=== PATIENT | female | born 1990 | race Caucasian/White ===

== ENCOUNTER 2017-02-16 22:06 | Emergency (ER) | payer OTHER ==
[~2017-02-16] VITALS: Ht 147.3 cm; Wt 68.1 kg
[2017-02-16 22:25] VITALS: Ht 147.3 cm; Wt 68.1 kg
--- NOTE | 2017-02-17 01:37 | RADRPT ---
PROCEDURE: Portable chest x-ray. CLINICAL INDICATION: Chest pain, shortness of breath. TECHNIQUE: Portable AP view of the chest. COMPARISON: None. FINDINGS: No pulmonary edema or conolidation is identified. The cardiac silhouette is magnified. No pleural effusion is seen. There is no pneumothorax. IMPRESSION: 1. No evidence of acute cardiopulmonary disease. RPTAT: HTAR .Anatoly Vallecillo MD, MD Date Time Electronically viewed and signed by .Anatoly Vallecillo MD, on 02/17/2017 01:37 .R/
--- NOTE | 2017-02-17 02:16 | RADRPT ---
PROCEDURE: Soft tissue neck. CLINICAL INDICATION: Swelling. TECHNIQUE: Two views including AP and lateral views of the soft tissue neck were obtained. COMPARISON: None. FINDINGS: The airways are patent. The epiglottis is not enlarged. Prevertebral soft tissues are within buzz l limits. There is no radiopaque foreign body or abnormal calcification identified. Osseous struct ures are unremarkable. IMPRESSION: Unremarkable soft tissue neck. .Sorin Hawk MD, MD Date Time Electronically viewed and signed by .Sorin Hawk MD, on 02/17/2017 02:15 .T/
[2017-02-17] MEDS ORDERED: IBUP-1542 PO (02:22)
[2017-02-17 02:29] VITALS: BP 121/75; PULSE 77; RESP 20; TEMP 97.9
--- NOTE | 2017-02-17 02:44 | ERD ---
ER Documentation Chief Complaint Chief Complaint cough x2 weeks, +cp and sob. HPI This is a 26-year-old female presents to the ER with multiple complaints. Patient has had a cough over the last 2 weeks, however cough is now resolving. She states that she began to experience chest pain and shortness of breath. Chest is nonexertional and is intermittent. Patient states that she also feels as if she has something stuck in the back of her throat and is also complaining of sore throat. Patient denies any trauma. She denies any recent travel. She does not have any leg pain, redness or swelling. She has not had any recent surgeries. She denies drinking and smoking. ROS 12 point review of systems was done, all negative except per HPI. Medications Home Meds Active Scripts Ibuprofen* (Motrin*) 600 Mg Tab, 600 MG PO Q6, #30 TAB Prov:ALFONSO THOMAS 02/17/17 PMhx/Soc Medical and Surgical Hx: pt denies Medical Hx History of Surgery: Yes (left arm sx) Anesthesia Reaction: No Hx Alcohol Use: No Hx Substance Use: No Hx Tobacco Use: No Smoking Status: Never smoker Physical Exam Vitals Vital Signs Date Time Temp Pulse Resp B/P Pulse Ox O2 Delivery O2 Flow Rate FiO2 02/17/17 02:29 97.9 77 20 121/75 97 Room Air 02/16/17 22:25 98.0 65 20 137/86 98 Physical Exam GENERAL: The patient is well developed and appropriate for usual state of health , in no apparent distress. HEENT: Atraumatic. Conjunctivae are pink. Pupils equal, round, and reactive to light. Extraocular muscles are grossly intact. Bilateral tympanic membranes are clear with no evidence of erythema, effusion or dulling of the light reflex. The oropharynx is clear with no erythema or exudates. NECK: C-spine is soft and supple. There is no cervical lymphadenopathy. CHEST: Clear to auscultation bilaterally. There are no rales, wheezes or rhonchi. HEART: Regular rate and rhythm. No murmurs, clicks, rubs or gallops. ABDOMEN: Soft, nontender and nondistended. Good bowel sounds. No rebound or guarding. No gross peritonitis. No gross organomegaly or masses. No Alvarez sign or McBurney point tenderness. No pulsatile masses. BACK: No midline or flank tenderness. EXTREMITIES: Equal pulses bilaterally. There is no peripheral clubbing, cyanosis or edema. No focal swelling or erythema. Full range of motion. Grossly neurovascularly intact. NEURO: Alert and oriented. Cranial nerves II through XII are intact. Motor strength in all 4 extremities with 5/5 strength. Sensation grossly intact. Normal speech and gait. SKIN: There is no apparent rash or petechia. The skin is warm and dry. Procedures/MDM EKG was taken and read by Dr. Harden [address] elevation no T-wave inversion. Differential diagnosis includes but is not limited to; STEMI, dissection, pneumothorax, PE, esophageal rupture, tamponade, pneumonia, pericarditis, GERD, musculoskeletal, endocarditis, anxiety. This time etiology of chest pain known however suspicion for acute cardiac etiology is low. For pulmonary embolism is low, patient does not have any PERC criteria. No evidence of foreign body in throat, and her examination was negative for strep throat. She for pneumonia is low, patient x-ray was negative and her physical examination is benign. Patient is afebrile, not hypoxic and extremely well-appearing, patient will be sent home with ibuprofen for pain. She is to follow-up with her primary care doctor within 1-2 days return to ER sooner if symptoms worsen. My medical decision making shared with the patient she understands and agrees with plan. Departure Diagnosis: Primary Impression: Multiple complaints Condition: Stable Patient Instructions: Chest Pain, Noncardiac Additional Instructions: Call your primary care doctor TOMORROW for an appointment during the next 1-2 days.See the doctor sooner or return here if your condition worsens before your appointment time. ALFONSO THOMAS Feb 17, 2017 02:44
== END 2017-02-17 02:30 | disposition home or self-care (01) ==
LOC: FTE 22:06
DX: R05 Cough (principal); R06.02 Shortness of breath; R07.9 Chest pain, unspecified; J02.9 Acute pharyngitis, unspecified
CPT/HCPCS: 70360; 71010; 93005; Z7502

== ENCOUNTER 2017-04-10 06:48 | Emergency (ER) | payer OTHER ==
[~2017-04-10] VITALS: Ht 149.9 cm; Wt 65.5 kg
[~2017-04-10 06:48] MED LIST: IBUP-1542 PO
[2017-04-10 06:55] VITALS: Ht 149.9 cm; Wt 65.5 kg
[2017-04-10] MEDS ORDERED: KETOROLAC 30 MG INJ IV STA (07:16)
[2017-04-10] MEDS ORDERED: ONDANSETRON (ODT) 4 MG TAB ODT STA (07:16)
[2017-04-10] MEDS ORDERED: ACETAMINOPHEN 325 MG TAB PO ONE (07:30)
[2017-04-10 08:06] LABS: BASOPHILS % 0.2 % (0.0-2.0); HEMATOCRIT 35.1 % (37.0-47.0); HEMOGLOBIN 12.2 g/dl (12.0-16.0); LYMPHOCYTES # 0.8 10^3/ul (0.8-2.9); LYMPHOCYTES % 10.2 % (15.0-51.0); MEAN CORPUSCULAR HEMOGLOBIN 28.8 pg (29.0-33.0); MEAN CORPUSCULAR HGB CONC 34.8 g/dl (32.0-37.0); MEAN PLATELET VOLUME 10.8 fl (7.4-10.4); MONOCYTE # 0.5 10^3/ul (0.3-0.9); MONOCYTES % 5.8 % (0.0-11.0); NEUTROPHIL # 6.8 10^3/ul (1.6-7.5); NEUTROPHILS % 83.6 % (39.0-77.0); PLATELET COUNT 192 10^3/UL (140-415); RED BLOOD COUNT 4.23 10^6/ul (4.20-5.40); RED CELL DISTRIBUTION WIDTH 12.9 % (11.5-14.5); WHITE BLOOD COUNT 8.1 10^3/ul (4.8-10.8)
[2017-04-10 08:19] LABS: ADD UMIC YES; UR ASCORBIC ACID NEGATIVE (NEGATIVE); UR BACTERIA FEW /HPF (NONE SEEN); UR BILIRUBIN (Dip) NEGATIVE (NEGATIVE); UR BLOOD (Dip) 1+ mg/dL (NEGATIVE); UR CLARITY CLEAR (CLEAR); UR COLOR COLORLESS (YELLOW); UR GLUCOSE (Dip) NEGATIVE (NEGATIVE); UR KETONES (Dip) NEGATIVE (NEGATIVE); UR LEUKOCYTE ESTERASE (Dip) NEGATIVE Leu/ul (NEGATIVE); UR NITRITE (Dip) NEGATIVE (NEGATIVE); UR RBC 6 /HPF (0-5); UR SPECIFIC GRAVITY (Dip) 1.001 (1.003-1.030); UR TOTAL PROTEIN (Dip) NEGATIVE (NEGATIVE); UR UROBILINOGEN (Dip) NEGATIVE (NEGATIVE)
--- NOTE | 2017-04-10 08:20 | RADRPT ---
PROCEDURE: XR Chest. CLINICAL INDICATION: Cough, nausea, sore throat. TECHNIQUE: AP Portable chest. COMPARISON: CHEST 02/17/2017 FINDINGS: The lung volumes are somewhat diminished. The cardiomediastinal silhouette appears within normal charles its. The lungs are clear and costophrenic angles sharp. The osseous structures are unremarkable. IMPRESSION: Low lung volumes, though no radiographic evidence of acute cardiopulmonary disease. RPTAT: HJAH .Hemalatha Casiano MD, MD Date Time Electronically viewed and signed by .Hemalatha Casiano MD, MD on 04/10/2017 08:20 .H/
[2017-04-10 08:28] LABS: ALBUMIN/GLOBULIN RATIO 1.05; BILIRUBIN,INDIRECT 0.1 mg/dl (0-1.1); BILIRUBIN,TOTAL 0.1 mg/dl (0.2-1.3); CALCIUM 9.3 mg/dl (8.4-10.2); CREATININE 0.78 mg/dl (0.44-1.00); POTASSIUM 3.8 mmol/L (3.5-5.1); TOTAL PROTEIN 7.8 g/dl (6.1-8.1)
[2017-04-10] MEDS ORDERED: IBUP-1542 PO (08:54)
[2017-04-10] MEDS ORDERED: ONDA-43 PO (08:55)
[2017-04-10] MEDS ORDERED: TYL500 PO (08:55)
[2017-04-10] MEDS ORDERED: BENZ1LOZ49 MM (09:03)
[2017-04-10] MEDS ORDERED: GUAI473L22 PO (09:11)
[2017-04-10] MEDS ORDERED: FLUT9.9S NASAL (09:11)
--- NOTE | 2017-04-10 09:45 | ERD ---
ER Documentation Chief Complaint Chief Complaint cough st fever and had vomiting x 2 days prior to this HPI This Is a 26-year-old female presents to the ER with nausea vomiting, diarrhea, sore throat, cough, fever, headache since Tuesday. Patient went to an urgent care and was given Zofran for her nausea and was told she had a stomach flu. Patient has been taking Zofran, Tylenol and other [id number] medications however her symptoms continue. When he is nonbilious nonbloody. Diarrhea is watery with no blood in it. Patient states that sore throat is worse whenever she swallows. Headache is throbbing in quality located on the left side of her head. Patient did not lose consciousness. She denies any head trauma. Patient 's fever has been very high in between 102 and 104. ROS 12 point review of systems was done, all negative except per HPI. Medications Home Meds Active Scripts Fluticasone Propionate (Flonase Allergy Relief) 9.9 Ml [place].susp, 1 SPRAY NASAL BID, #1 BOTTLE TO EACH NOSTRIL Prov:ALFONSO THOMAS 04/10/17 Guaifenesin-Codeine Phosphate* (Guaifenesin* AC Cough Syrup) 473 Ml Liquid, 10 ML PO Q4H Y for COUGH for 3 Days, ML Prov:ALFONSO THOMAS 04/10/17 Benzocaine/Menthol* (Chloraseptic* Max Lozenge) 1 Each Lozenge, 1 LOZENGE MM Q3H Y for SORE THROAT for 3 Days, LOZENGE Prov:ALFONSO THOMAS 04/10/17 Ondansetron Hcl* (Zofran*) 4 Mg Tab, 4 MG PO Q4H Y for NAUSEA AND OR VOMITING for 3 Days, TAB Prov:ALFONSO THOMAS 04/10/17 Acetaminophen* (Tylenol*) 500 Mg Tab, 500 MG PO Q4H Y for MILD PAIN LEVEL 1-3 for 3 Days, TAB Prov:ALFONSO THOMAS 04/10/17 Ibuprofen* (Motrin*) 600 Mg Tab, 600 MG PO Q6, #30 TAB Prov:ALFONSO THOMAS 04/10/17 Ibuprofen* (Motrin*) 600 Mg Tab, 600 MG PO Q6, #30 TAB Prov:ALFONSO THOMAS 02/17/17 Allergies Allergies: Coded Allergies: No Known Allergy (Unverified , 04/10/17) PMhx/Soc Medical and Surgical Hx: pt denies Medical Hx, pt denies Surgical Hx History of Surgery: Yes (left arm sx) Anesthesia Reaction: No Hx Alcohol Use: No Hx Substance Use: No Hx Tobacco Use: No Smoking Status: Never smoker Physical Exam Vitals Vital Signs Date Time Temp Pulse Resp B/P Pulse Ox O2 Delivery O2 Flow Rate FiO2 04/10/17 06:55 102.7 133 18 138/85 97 Physical Exam GENERAL: The patient is well-developed, well-nourished, in no acute distress. NECK: Cervical spine is non tender with no step off. Supple, no nuchal rigidity HEENT: Atraumatic. Pupils equal, round and reactive to light. Extraocular muscles are grossly intact. Conjunctivae pink, no discharge. Bilateral tympanic membranes are clear with no evidence of erythema, effusion or dulling of the light reflex. Tonsilar erythema with no exudates or uvular deviation. Clear rhinorrhea. RESPIRATORY: Clear to auscultation bilaterally. There are no rales, wheezes or rhonchi. HEART: Regular rate and rhythm. No murmurs, clicks, rubs or gallops. EXTREMITIES: No clubbing or cyanosis. Full range of motion. Grossly neurovascularly intact. NEUROLOGIC: Alert and oriented. Cranial nerves II through XII are intact. SKIN: There is no rash. The skin is warm and dry. Result Diagram: 04/10/17 0720 04/10/17 0720 Results 24 hrs Laboratory Tests Test 04/10/17 07:20 White Blood Count 8.110^3/ul Red Blood Count 4.2310^6/ul Hemoglobin 12.2g/dl Hematocrit 35.1% Mean Corpuscular Volume 83.0fl Mean Corpuscular Hemoglobin 28.8pg Mean Corpuscular Hemoglobin Concent 34.8g/dl Red Cell Distribution Width 12.9% Platelet Count 71096^3/UL Mean Platelet Volume 10.8fl Neutrophils % 83.6% Lymphocytes % 10.2% Monocytes % 5.8% Eosinophils % 0.0% Basophils % 0.2% Nucleated Red Blood Cells % 0.0/100WBC Neutrophils # 6.810^3/ul Lymphocytes # 0.810^3/ul Monocytes # 0.510^3/ul Eosinophils # 0.010^3/ul Basophils # 0.010^3/ul Nucleated Red Blood Cells # 0.010^3/ul Urine Color COLORLESS Urine Clarity CLEAR Urine pH 8.0 Urine Specific [place] 1.001 Urine Ketones NEGATIVEmg/dL Urine Nitrite NEGATIVEmg/dL Urine Bilirubin NEGATIVEmg/dL Urine Urobilinogen NEGATIVEmg/dL Urine Leukocyte Esterase NEGATIVELeu/ul Urine Microscopic RBC 6/HPF Urine Microscopic WBC 1/HPF Urine Bacteria FEW/HPF Urine Hemoglobin 1+mg/dL Urine Glucose NEGATIVEmg/dL Urine Total Protein NEGATIVEmg/dl Sodium Level 139mmol/L Potassium Level 3.8mmol/L Chloride Level 104mmol/L Carbon Dioxide Level 25mmol/L Anion Gap 14 Blood Urea Nitrogen 3mg/dl Creatinine 0.78mg/dl Glucose Level 106mg/dl Calcium Level 9.3mg/dl Total Bilirubin 0.1mg/dl Direct Bilirubin 0.00mg/dl Indirect Bilirubin 0.1mg/dl Aspartate Amino Transf (AST/SGOT) 40IU/L Alanine Aminotransferase (ALT/SGPT) 80IU/L Alkaline Phosphatase 104IU/L Total Protein 7.8g/dl Albumin 4.0g/dl Globulin 3.80g/dl Albumin/Globulin Ratio 1.05 Current Medications Medications (Trade) Dose Ordered Sig/Mireille Route PRN Reason Start Time Stop Time Status Last Admin Dose Admin Ondansetron HCl (Zofran Odt) 4 mg ONCE STAT ODT 04/10/17 07:16 04/10/17 07:19 DC 04/10/17 07:45 Ketorolac Tromethamine (Toradol) 30 mg ONCE STAT IV 04/10/17 07:16 04/10/17 07:19 DC 04/10/17 07:45 Acetaminophen (Tylenol Tab) 650 mg ONCE ONCE PO 04/10/17 07:30 04/10/17 07:31 DC 04/10/17 07:45 [place] [id number] Radiology Main Line: [phone] DIAGNOSTIC IMAGING REPORT Patient: CHRIS ROGERS : 1990 Age: 26 Sex: F MR #: [id number] DOS: 04/10/17 0000 Ordering MD: ALFONSO THOMAS. PA-Tonia Location: [facility] Room/Bed: PROCEDURE: XR Chest. CLINICAL INDICATION: Cough, nausea, sore throat. TECHNIQUE: AP Portable chest. COMPARISON: CHEST 02/17/2017 FINDINGS: The lung volumes are somewhat diminished. The cardiomediastinal silhouette appears within normal limits. The lungs are clear and costophrenic angles sharp. The osseous structures are unremarkable. IMPRESSION: Low lung volumes, though no radiographic evidence of acute cardiopulmonary disease. RPTAT: HJAH .Hemalatha Casiano MD, MD Date Time Electronically viewed and signed by .Hemalatha Casiano MD, MD on 04/10/2017 08:20 .H/ CC: ALFONSO THOMAS Procedures/MDM This is a 26-year-old female presents to the ER with influenza-like symptoms, patient did test positive for influenza A. There is no evidence of pneumonia on x-ray. Patient was given fluids in the ER, and her fever was controlled. Blood work was negative for electrolyte abnormality, anemia or systemic infection. Suspicion for meningitis or sepsis is low, patient did not have any meningeal signs. Patient has fallen out of the window for Tamiflu, however she will be symptomatically treated with Tylenol, ibuprofen, Flonase, Zofran, cough medicine. She is to follow-up with her primary care doctor within 1-2 days return to ER sooner if symptoms worsen. Should my medical decision making with the patient and her mother they understand and agree with plan. Departure Diagnosis: Primary Impression: Influenza A Condition: Stable Patient Instructions: Influenza (Adult) Additional Instructions: Call your primary care doctor TOMORROW for an appointment during the next 1-2 days.See the doctor sooner or return here if your condition worsens before your appointment time. ALFONSO THOMAS Apr 10, 2017 09:45
== END 2017-04-10 09:28 | disposition home or self-care (01) ==
LOC: FTE 06:48
DX: J10.1 Influenza due to other identified influenza virus with other respiratory manifestations (principal)
CPT/HCPCS: 71010; 80053; 81001; 85025; 87400; 87880; 96374; J1885; Z7502; Z7610

== ENCOUNTER 2018-01-02 15:11 | Emergency (ER) | END 2018-01-02 19:24 | disposition home or self-care (01) ==

== ENCOUNTER 2018-04-07 12:24 | Emergency (ER) | END 2018-04-07 15:23 | disposition home or self-care (01) ==